=== PATIENT | female | born 1945 | race Caucasian/White ===

== ENCOUNTER → 2016-06-16 | Outpatient (CLI) | payer MEDICARE, OTHER | LOC: COL.RAD 11:48 | DX: Z87.440 Personal history of urinary (tract) infections (principal); R93.8 Abnormal findings on diagnostic imaging of other specified body structures ==

== ENCOUNTER 2017-10-12 07:29 | Day surgery (SDC) | payer MEDICARE ==
[~2017-10-12] VITALS: Ht 160 cm; Wt 56.1 kg
[2017-10-12] VITALS (12 sets, daily range): BP systolic 105–144; BP diastolic 44–68; PULSE 62–76; TEMP 97.9–98.6
[2017-10-12] MEDS ORDERED: ZOCOR 40MG40 MG PO (08:30)
[2017-10-12] MEDS ORDERED: GLUCOPHAGE500 MG/TAB PO (08:30)
[2017-10-13 00:29] VITALS: BP 109/47; PULSE 74; TEMP 98.4
[2017-10-13 04:36] VITALS: BP 97/47; PULSE 66; TEMP 98.5
[2017-10-13 08:31] VITALS: BP 118/56; PULSE 64; TEMP 97.5
[2017-10-13 13:01] VITALS: BP 115/68; PULSE 62; TEMP 98.2
[2017-10-13 17:39] VITALS: BP 133/57; PULSE 70; TEMP 98.3
[2017-10-13] MEDS ORDERED: GLUCOPHAGE500 MG/TAB PO (18:44)
== END 2017-10-13 20:00 | disposition home or self-care (01) ==
LOC: SURG 07:29 → SDCO 07:29 → INPTSU 07:29 → EDSTATUS 09:45 → SURG 09:45 → SDCO 09:45 → SURG 15:15 → INPTSU 15:15 → SURG 15:15 → SDCO 10-13 20:00
DX: N81.89 Other female genital prolapse (principal); N81.2 Incomplete uterovaginal prolapse; E78.00 Pure hypercholesterolemia, unspecified; N39.0 Urinary tract infection, site not specified; M85.80 Other specified disorders of bone density and structure, unspecified site; F32.9 Major depressive disorder, single episode, unspecified; E11.9 Type 2 diabetes mellitus without complications; K21.9 Gastro-esophageal reflux disease without esophagitis; Z79.84 Long term (current) use of oral hypoglycemic drugs; Z87.891 Personal history of nicotine dependence; Z82.5 Family history of asthma and other chronic lower respiratory diseases; Z82.3 Family history of stroke; Z83.3 Family history of diabetes mellitus; Z82.49 Family history of ischemic heart disease and other diseases of the circulatory system
CPT/HCPCS: OP; A4314; A9284; C1713; C1781; J0360; J0690; J1885; J2405; J2704; J3010; J7120

== ENCOUNTER 2021-06-10 06:06 | Day surgery (SDC) | payer MEDICARE ==
[~2021-06-10] VITALS: Ht 160 cm; Wt 51.5 kg
[~2021-06-10 06:06] MED LIST: CELEXA 20MG20 MG/TAB PO; GLUCOPHAGE500 MG/TAB PO; ZOCOR 40MG40 MG PO
[2021-06-10 06:24] VITALS: BP 130/84; PULSE 67; TEMP 97.9
[2021-06-10 07:35] VITALS: BP 95/79; PULSE 58; TEMP 97.8
--- NOTE | 2021-06-10 07:35 | NUR ---
Patient arrived on a cart from the endo suite. Patient is drowsy but can answer simple questions and respond appropriatly. Patient ambulated from the cart to the chair with minimal assistance. Vitals obtained and are WNL. Verbal report obtained from SAMREEN Driscoll. The patient requested a warm muffin and ice water. Call briggs is on her lap.
--- NOTE | 2021-06-10 07:42 | NUR ---
Mary recio and amarilis served by SAMREEN Brock.
[2021-06-10 07:50] VITALS: BP 121/71; PULSE 52
--- NOTE | 2021-06-10 07:50 | NUR ---
Patient is alert and oriented x3. Patient is watching TV. Denies neusea. No vomiting. Vitals obtained. Patient is tolerating her muffin and ice water well.
[2021-06-10 08:05] VITALS: BP 138/64; PULSE 57
--- NOTE | 2021-06-10 08:05 | NUR ---
Vitals obtained. The patient expressed desire to be discharged. IV was discontinued due to impending discharge. Catheter tip intact. Pressure dressing applied. No redness or swelling noted. Discharge instructions and educational material was reviewed at this time. The patient verbalized understanding and signed the realted paperwork. The patient denied having any questions or concerns. The patient denied needing assitance changing into her personal clothes and stool without difficulty. Steady gait. Call briggs is within reach.
--- NOTE | 2021-06-10 08:20 | NUR ---
Patient changed into her personal clothes. SAMREEN Brock escorted the patient to the [facility] via wheelchair and transferred into the care of her Son Nicole. Who is present to drive.
== END 2021-06-10 08:20 | disposition home or self-care (01) ==
LOC: SDCO 06:06
DX: Z12.11 Encounter for screening for malignant neoplasm of colon (principal); D12.0 Benign neoplasm of cecum; D12.2 Benign neoplasm of ascending colon; E11.9 Type 2 diabetes mellitus without complications; E78.5 Hyperlipidemia, unspecified; F32.A Depression, unspecified; K57.30 Diverticulosis of large intestine without perforation or abscess without bleeding; Z79.84 Long term (current) use of oral hypoglycemic drugs; Z79.899 Other long term (current) drug therapy; Z87.891 Personal history of nicotine dependence; Z83.71 Family history of colonic polyps
CPT/HCPCS: J2704; J7030

== ENCOUNTER 2021-11-23 22:52 | Emergency (ER) | payer MEDICARE ==
[~2021-11-23] VITALS: Ht 160 cm; Wt 50.0 kg
[2021-11-23 23:32] LABS: BASO % 0.4 % (0.0-2.0); EOS % 0.8 % (0.0-4.0); GRAN # 3.5 K/mm3 (1.4-6.5); GRAN % 67.8 % (42.2-75.2); LYMPH # 0.8 K/mm3 (1.2-3.4); LYMPH % 15.2 % (20.0-51.0); MEAN CELL VOLUME 95 fl (80.0-100.0); MEAN CORPUSCULAR HEMOGLOBIN 31 pg (27-31); MEAN CORPUSCULAR HGB CONC 33 g/dl (33.0-37.0); MEAN PLATELET VOLUME 9.1 fl (7.4-10.4); MONO # 0.8 K/mm3 (0.1-0.6); MONO % 15.4 % (1.7-9.3); PLATELET COUNT 109 K/mm3 (130-400); RED BLOOD COUNT 3.82 M/mm3 (4.10-5.30); REDCELL DISTRIBUTION WIDTH-CV 12.9 % (11.5-14.5)
[2021-11-23 23:34] LABS: HEMATOCRIT 36.4 % (37.0-47.0)
[2021-11-23] MEDS ORDERED: ZOFRAN ODT4 MG PO (23:41)
[2021-11-23 23:47] LABS: ALBUMIN 3.8 gm/dL (3.4-4.8); BILIRUBIN,TOTAL 0.3 mg/dL (0.2-1.2); CALCIUM 8.7 mg/dL (8.4-10.2); CREATININE, serum 0.93 mg/dL (0.57-1.11); POTASSIUM 4.4 mmol/L (3.5-4.5); TOTAL PROTEIN 7.1 gm/dL (6.2-8.1)
[2021-11-24 00:18] VITALS: BP 116/53; PULSE 68; TEMP 100.3
== END 2021-11-24 00:18 | disposition home or self-care (01) ==
LOC: COL.ER 22:52
PROVIDERS: Nurse Practitioner Primary Care
DX: U07.1 COVID-19 (principal); Z87.891 Personal history of nicotine dependence
CPT/HCPCS: J2405; J7030